=== PATIENT | male | born 1970 | race Caucasian/White ===

== ENCOUNTER 2019-06-22 07:33 | Day surgery (SDC) | payer OTHER ==
[2019-06-21 13:12] VITALS: BMI 35.2
--- NOTE | 2019-06-21 22:18 | HP ---
HISTORY OF PRESENT ILLNESS: Mr. Payne is a pleasant 49-year-old gentleman, presenting for a lower back complaint, but additionally pain in his neck as well as intrascapular pains and deltoid pains. This appears to fit well at C5 and C6 pattern of pain. He brings an MRI that shows foraminal stenosis at both levels between C4-C6 that would correspond well. He has treated this with injection therapy and medications with minimal relief and hopes to move forward with surgery at this time. PAST MEDICAL HISTORY: Blood clots. PAST SURGICAL HISTORY: Tonsillectomy, leg fracture repair, vasectomy, unspecified knee surgery. CURRENT MEDICATIONS: Prazosin, venlafaxine, trazodone, Tylenol No. 4, Eliquis, testosterone. ALLERGIES: TO DOXYCYCLINE AND XARELTO. PHYSICAL EXAMINATION: NEUROLOGIC: The patient is alert and oriented x3. Gait is normal. No ataxia. Positive bilateral Spurling's. ASSESSMENT: Cervical radiculopathy. PLAN: Dr. Nichols met with the patient, reviewed imaging, and advocated for a C4-C6 ACDF. He explained to the patient the risks, benefits, and alternatives to the procedure. The patient expressed understanding and elected to move forward with surgery as discussed. I do believe the patient is mentally competent and capable of making medical decisions for himself. We will move forward with surgery as planned. Job ID: [id number]
[2019-06-22] MEDS ORDERED: Fentanyl 100 MCG/2 ML VIAL ONE ×4 (09:18→11:24)
[2019-06-22] MEDS ORDERED: HYDROmorphone 2 MG/ML VIAL ONE (10:02)
[2019-06-22] MEDS ORDERED: Tamsulosin HCl 0.4 MG CAP ONE (11:24)
[2019-06-22] MEDS ORDERED: HYDROcodone/Acetaminophen 5/325 mg Tablet ONE (12:54)
[2019-06-22] MEDS ORDERED: Glycopyrrolate 0.2 MG/ML 5 ML SYRINGE ONE (15:37)
[2019-06-22] MEDS ORDERED: Ketorolac Tromethamine 30 MG/ML VIAL ONE (15:37)
[2019-06-22] MEDS ORDERED: Ondansetron PF 4 MG/2 ML Vial ONE (15:37)
[2019-06-22] MEDS ORDERED: Rocuronium Bromide 10 MG/ML (10ML VIAL) ONE (15:37)
[2019-06-22] MEDS ORDERED: Dexamethasone 20 MG/5 ML VIAL ONE (15:37)
[2019-06-22] MEDS ORDERED: PROPOFOL 200 MG/20 ML VIAL ONE (15:37)
[2019-06-22] MEDS ORDERED: Lidocaine 1% PF 5 ML VIAL ONE (15:37)
[2019-06-22] MEDS ORDERED: PHENYLEPHRINE-NS 100 MCG/ML 10 ML SYRINGE ONE (15:37)
--- NOTE | 2019-06-22 16:19 | OP ---
DATE OF PROCEDURE: 06/22/2019 STOPPERER ASSEMBLER: Bill Aguilar PA-C. INDICATION: Pain. DIAGNOSIS: Cervical radiculopathy. PROCEDURE PERFORMED: Anterior cervical diskectomy and fusion at C4-C5. DESCRIPTION OF PROCEDURE: The patient was brought into the operating room and placed under general anesthesia. He was placed on table in a supine position. A transverse incision was planned over the lateral aspect of the neck on the right. After prepping and draping and after an appropriate operative pause, the incision was created. The underlying platysma muscle was identified and incised. A blunt tissue plane was created anterior to the sternocleidomastoid muscle, which was used to gain access to the prevertebral space. After identifying the appropriate level with C-arm fluoroscopy, an annulotomy was performed in the C4-C5 disk space, and disk material was removed. All disk material as well as anterior and posterior osteophytes were removed. After complete decompression, the wound was irrigated. Hemostasis was maintained throughout. Interbody was placed in C4-C5, and an anterior cervical plate was fashioned to the front of the spine and secured with 4 fixed screws. After irrigating and after maintaining hemostasis, the wound was closed in anatomic layers and a pressure dressing was applied. There were no known procedural complications. Job ID: [id number]
== END 2019-06-22 13:20 | disposition home or self-care (01) ==
LOC: SDC 07:33
PROVIDERS: ATTEND Neurological Surgery
PROC: 0RG10A0 Fusion of Cervical Vertebral Joint with Interbody Fusion Device, Anterior Approach, Anterior Column, Open Approach (ICD-10-PCS; principal; 2019-06-22)
PROC: 0RT30ZZ Resection of Cervical Vertebral Disc, Open Approach (ICD-10-PCS; principal; 2019-06-22)
DX: M54.12 Radiculopathy, cervical region (principal); G47.30 Sleep apnea, unspecified; E66.9 Obesity, unspecified; Z68.35 Body mass index [BMI] 35.0-35.9, adult; Z79.01 Long term (current) use of anticoagulants; Z79.899 Other long term (current) drug therapy; Z88.1 Allergy status to other antibiotic agents; Z88.8 Allergy status to other drugs, medicaments and biological substances; Z99.89 Dependence on other enabling machines and devices
CPT/HCPCS: 76000; C1713; C1776; J0131; J0690; J1100; J1170; J1885; J2001; J2405; J2704; J3010

== ENCOUNTER 2019-10-05 05:48 | Day surgery (SDC) | payer OTHER ==
[2019-10-04 10:59] VITALS: BMI 35.9
--- NOTE | 2019-10-04 13:30 | HP ---
HISTORY OF PRESENT ILLNESS: Mr. Payne is a pleasant 49-year-old gentleman known to us for recent multilevel ACDF, who also has complaints of lower back pains and left-sided lumbar radiculopathy that would best fit in L5 and partially S1 pattern with an MRI on disk that reveals severe lateral recess and foraminal stenosis at L5 that would best explain this. He has attempted conservative therapy in the form of injections, medications, but hopes to move forward with surgery as he has done so well with his neck. PAST MEDICAL HISTORY: Significant for blood clots. PAST SURGICAL HISTORY: Tonsillectomy, leg fracture repair, vasectomy, unspecified laterality knee surgery, ACDF. CURRENT MEDICATIONS: 1. Prazosin. 2. Venlafaxine. 3. Trazodone. 4. Tylenol No.4. 5. Eliquis. 6. Testosterone. ALLERGIES: DOXYCYCLINE AND XARELTO. PHYSICAL EXAMINATION: The patient is alert and oriented x3. Gait is antalgic and slowed. Lower extremity motor exam is normal. Positive left straight leg raise. ASSESSMENT: Lumbar radiculopathy. PLAN: Dr. Nichols met with the patient, reviewed imaging, advocated for a left L5 decompression. He explained to the patient the risks, benefits, and alternatives to the procedure. The patient expressed understanding and elected to move forward with surgery as discussed. I do believe the patient is mentally competent and capable of making medical decisions for himself. We will move forward with surgery as planned. Job ID: [id number]
[2019-10-05] MEDS ORDERED: EPINEPHrine 1 MG/ML AMP ONE (06:17)
[2019-10-05] MEDS ORDERED: Bupivacaine PF 0.5% 30 ML VIAL ONE (06:17)
[2019-10-05] MEDS ORDERED: Thrombin 5000 UNITS/5 ML VIAL ONE (06:17)
[2019-10-05] MEDS ORDERED: Fentanyl 250 MCG/5 ML VIAL ONE (06:29)
[2019-10-05] MEDS ORDERED: HYDROmorphone 0.5 MG/0.5 ML SYRINGE ONE (06:56)
[2019-10-05] MEDS ORDERED: Tamsulosin HCl 0.4 MG CAP ONE (08:48)
[2019-10-05] MEDS ORDERED: Fentanyl 100 MCG/2 ML VIAL ONE ×2 (08:53→09:25)
--- NOTE | 2019-10-05 09:38 | OP ---
DATE OF PROCEDURE: 10/05/2019 INSECTICIDE SPRAYER: Bill Aguilar PA-C INDICATION: Pain. DIAGNOSIS: Lumbar radiculopathy. PROCEDURE PERFORMED: Left L5 decompression. ANESTHESIA: General. DESCRIPTION OF PROCEDURE: The patient was brought into the operating room, placed under general anesthesia. He was flipped from the supine to prone position on the operating room table. A linear incision was planned over the L5 segment. After prepping and draping and after an appropriate preoperative pause, the incision was created. The soft tissues were swept away from midline. A self-retaining retractor was placed in the wound for optimal exposure. After confirming the appropriate level with C-arm fluoroscopy, high-speed cutting drill bit as well as 1, 2, and 3 mm Kerrisons were used to perform hemilaminectomy along the inferior aspect of L5 and the superior aspect of S1. The laminectomy was extended laterally to encompass the medial aspect of the facet joint in order to adequately decompress the lateral recess. After completing the decompression, the wound was irrigated. Hemostasis was maintained throughout. The wound was then closed in anatomic layers and a pressure dressing was applied. There were no known procedural complications. Job ID: [id number]
[2019-10-05] MEDS ORDERED: HYDROcodone/Acetaminophen 5/325 mg Tablet ONE (10:13)
[2019-10-05] MEDS ORDERED: Rocuronium Bromide 10 MG/ML (10ML VIAL) ONE (13:54)
[2019-10-05] MEDS ORDERED: Dexamethasone 20 MG/5 ML VIAL ONE (13:54)
[2019-10-05] MEDS ORDERED: Ketorolac Tromethamine 30 MG/ML VIAL ONE (13:54)
[2019-10-05] MEDS ORDERED: PROPOFOL 200 MG/20 ML VIAL ONE (13:54)
[2019-10-05] MEDS ORDERED: Lidocaine 1% PF 5 ML VIAL ONE (13:54)
[2019-10-05] MEDS ORDERED: Glycopyrrolate 0.2 MG/ML 5 ML SYRINGE ONE (13:54)
[2019-10-05] MEDS ORDERED: Ondansetron PF 4 MG/2 ML Vial ONE (13:54)
== END 2019-10-05 11:10 | disposition home or self-care (01) ==
LOC: SDC 05:48
PROVIDERS: ATTEND Neurological Surgery
PROC: 01NB0ZZ Release Lumbar Nerve, Open Approach (ICD-10-PCS; principal; 2019-10-05)
DX: M48.061 Spinal stenosis, lumbar region without neurogenic claudication (principal); M54.16 Radiculopathy, lumbar region; Z79.01 Long term (current) use of anticoagulants; Z79.899 Other long term (current) drug therapy; Z88.1 Allergy status to other antibiotic agents; Z88.8 Allergy status to other drugs, medicaments and biological substances; Z98.1 Arthrodesis status
CPT/HCPCS: 76000; J0171; J0690; J1100; J1170; J1885; J2001; J2405; J2704; J3010; S0020

== ENCOUNTER 2023-08-26 06:22 | Inpatient (IN) | payer OTHER ==
[2023-08-24 13:05] VITALS: BMI 25.0
[2023-08-26 07:02] LABS: #Basophils 0.1 thou/uL (0.0-0.2); #Eosinphils 0.2 thou/uL (0.0-0.7); #Monocytes 0.5 thou/uL (0.11-0.59); #Neutrophils 2.8 thou/uL (1.40-6.50); %Basophils 0.9 % (0.0-1.0); %Eosinophils 2.9 % (0.0-10.0); %Lymphocytes 36.3 % (21.0-51.0); %Monocytes 8.5 % (0.0-10.0); %Neutrophils 51.2 % (42.0-75.0); Hematocrit 42.1 % (42.0-52.0); Hemoglobin 14.5 g/dL (14.0-18.0); Mean Corpuscular HGB CONC 34.4 g/dL (32.0-36.0); Mean Corpuscular Hemoglobin 31.5 pg (27.0-31.0); Mean Corpuscular Volume 91.3 fl (78.0-98.0); Mean Platelet Volume 9.1 fL (7.4-10.4); Platelet Count 220 10x3/uL (130-400); RBC Distribution Width 13.8 % (11.5-14.5); Red Blood Cell (RBC) Count 4.61 mill/uL (4.70-6.10); White Blood Cell (WBC) Count 5.4 10x3/uL (4.8-10.8)
[2023-08-26] MEDS ORDERED: Rocuronium Bromide 10 MG/ML (10ML VIAL) ONE (08:25)
[2023-08-26] MEDS ORDERED: PROPOFOL 20 ML ONE (08:25)
[2023-08-26] MEDS ORDERED: Thrombin 5000 UNITS/5 ML VIAL ONE (08:46)
[2023-08-26] MEDS ORDERED: fentaNYL PF 100 MCG/2 ML SYRINGE ONE (08:55)
[2023-08-26] MEDS ORDERED: Ketorolac Tromethamine 30 MG/ML VIAL ONE (09:08)
[2023-08-26] MEDS ORDERED: Ondansetron PF 4 MG/2 ML Vial ONE (09:08)
[2023-08-26] MEDS ORDERED: Dexamethasone 20 MG/5 ML VIAL ONE (09:08)
[2023-08-26] MEDS ORDERED: ePHEDrine Sulfate 50 MG/10 ML VIAL ONE (09:11)
[2023-08-26] MEDS ORDERED: SUGAMMADEX SODIUM 200 MG/2 ML VIAL ONE (10:13)
[2023-08-26] MEDS ORDERED: Dexmedetomidine 200 MCG/2 ML VIAL ONE (10:14)
[2023-08-26] MEDS ORDERED: Glycopyrrolate 0.2 MG/ML 5 ML SYRINGE ONE (10:18)
[2023-08-26] MEDS ORDERED: Tamsulosin HCl 0.4 MG CAP ONE (11:33)
[2023-08-26] MEDS ORDERED: Morphine 2 MG/ML VIAL ONE (12:06)
[2023-08-26] MEDS ORDERED: HYDROcodone/Acetaminophen 5/325 mg Tablet ONE (12:27)
[2023-08-26] MEDS ORDERED: Sodium Chloride 0.9% 100 ML ONE (13:04)
[2023-08-26] MEDS ORDERED: CEFAZOLIN 2 GM VIAL ONE (13:04)
== END 2023-08-26 13:40 | disposition home or self-care (01) | DRG 30 ==
LOC: SURG A 06:22
PROVIDERS: ADMIT Neurological Surgery; ATTEND Neurological Surgery
PROC: 0RG10A0 Fusion of Cervical Vertebral Joint with Interbody Fusion Device, Anterior Approach, Anterior Column, Open Approach (ICD-10-PCS; principal; 2023-08-26)
PROC: 0RT30ZZ Resection of Cervical Vertebral Disc, Open Approach (ICD-10-PCS; 2023-08-26)
PROC: 01N10ZZ Release Cervical Nerve, Open Approach (ICD-10-PCS; 2023-08-26)
PROC: 3E033XZ Introduction of Vasopressor into Peripheral Vein, Percutaneous Approach (ICD-10-PCS; 2023-08-26)
DX: M54.12 Radiculopathy, cervical region (principal); G89.29 Other chronic pain; M19.90 Unspecified osteoarthritis, unspecified site; Z90.89 Acquired absence of other organs; Z98.890 Other specified postprocedural states; Z98.1 Arthrodesis status; Z79.899 Other long term (current) drug therapy; Z72.0 Tobacco use
CPT/HCPCS: 85025; C1713; J1100; J1885; J2272; J2405; J2704; J3490